=== PATIENT | female | born 1970 | race Caucasian/White ===

== ENCOUNTER 2018-03-14 12:20 | Outpatient (CLI) | payer OTHER | END 2018-03-14 12:21 | disposition home or self-care (01) | LOC: BICMAMMO 12:20 | PROVIDERS: ATTEND Family Medicine | DX: Z12.31 Encounter for screening mammogram for malignant neoplasm of breast (principal); R92.1 Mammographic calcification found on diagnostic imaging of breast; Z80.3 Family history of malignant neoplasm of breast | CPT/HCPCS: 77067 ==

== ENCOUNTER 2019-08-24 17:46 | Emergency (ER) | payer OTHER ==
[2019-08-24 18:04] LABS: #Eosinphils 0.2 thou/uL (0.0-0.7); #Lymphocytes 1.4 thou/uL (1.20-3.40); #Monocytes 0.4 thou/uL (0.11-0.59); %Basophils 1.2 % (0.0-1.0); %Eosinophils 4.2 % (0.0-10.0); %Lymphocytes 34.3 % (21.0-51.0); %Monocytes 9.4 % (0.0-10.0); %Neutrophils 50.9 % (42.0-75.0); Hemoglobin 13.5 g/dL (12.0-16.0); Mean Corpuscular HGB CONC 33.5 g/dL (32.0-36.0); Mean Corpuscular Hemoglobin 30.4 pg (27.0-31.0); Mean Corpuscular Volume 90.7 fL (78.0-98.0); Mean Platelet Volume 6.7 fL (7.4-10.4); Platelet Count 246 thou/uL (130-400); Red Blood Cell (RBC) Count 4.43 mill/uL (4.20-5.40); White Blood Cell (WBC) Count 3.9 thou/uL (4.8-10.8)
[2019-08-24 18:24] LABS: ALT (SGPT) 11 U/L (8-55); AST (SGOT) 12 U/L (5-34); Alkaline Phosphatase 94 U/L (40-110); Anion Gap 6 mmol/L (10-20); BUN (Urea Nitrogen) 10 mg/dL (7.0-18.7); Bilirubin, Total 0.3 mg/dL (0.2-1.2); Calc. Creatinine Clearance 0 mL/min (70-130); Calcium 9.3 mg/dL (7.8-10.44); Carbon Dioxide 32 mmol/L (22-29); Chloride 103 mmol/L (98-107); Estimated GFR-MDRD Greater than 90; Globulin 3.3 g/dL (2.4-3.5); Glucose 92 mg/dL (70-105); Potassium 4.5 mmol/L (3.5-5.1); Protein, Total 7.3 g/dL (6.0-8.3); Sodium 136 mmol/L (136-145)
--- NOTE | 2019-08-24 18:28 | ULT ---
ULTRASOUND DOPPLER DUPLEX VENOUS LEFT LOWER EXTREMITY: DATE: 08/24/2019 HISTORY: Left lower extremity pain TECHNIQUE: Grayscale, color-flow, and spectral analysis, of major veins of left lower extremity. FINDINGS: There is demonstration of blood flow with normal compressibility, of the left common femoral, profund a femoral, greater saphenous, femoral, popliteal, and posterior tibial, veins. IMPRESSION: Negative. No deep venous thrombosis of left lower extremity.
== END 2019-08-24 19:40 | disposition home or self-care (01) ==
LOC: ERS 17:46
DX: L03.116 Cellulitis of left lower limb (principal); F32.9 Major depressive disorder, single episode, unspecified
CPT/HCPCS: 36415; 80053; 85025

== ENCOUNTER 2019-09-24 10:13 | Outpatient (CLI) | payer OTHER ==
--- NOTE | 2019-09-24 12:57 | MRI ---
Exam: Brain MRI with and without contrast HISTORY: Multiple sclerosis diagnosis 1998. Follow-up exam. COMPARISON: 09/16/2015 FINDINGS: Gradient echo sequence: No hemorrhage Calvarium: Appropriate T1 marrow signal intensity Midline brain parenchyma: Unremarkable Cerebrum:No parenchymal mass, mass effect or midline shift. Brain volume, less than expected for adan ent's age. Cortical llamas-white matter differentiation is preserved. There are confluent T2 and FLAIR white matter hyperintensities, without associated restricted diffusion or enhancement. The conf iguration is somewhat atypical for multiple sclerosis. Ventricles: No evidence of hydrocephalus. Sinuses and mastoid air cells: Adequate aeration Diffusion: Central arterial flow is maintained. Absent restricted diffusion. Postcontrast images: No pathologic enhancement of the brain parenchyma. IMPRESSION: 1. Essentially stable white matter hyperintensities. The overall configuration is not typical for mul tiple atherosclerosis. Correlate clinically. 2. No evidence of enhancement or restricted diffusion suggest a focus of active demyelination in a pa tient with reported multiple sclerosis.
[2019-09-24] MEDS ORDERED: Magnevist 469MG/ML 20 ML VIAL ONE (14:27)
== END 2019-09-24 10:14 | disposition home or self-care (01) ==
LOC: BICMRI 10:13
PROVIDERS: ATTEND Nurse Practitioner Acute Care
DX: G35 Multiple sclerosis (principal); G93.89 Other specified disorders of brain
CPT/HCPCS: 70553; A9579

== ENCOUNTER 2020-11-26 10:22 | Outpatient (CLI) | payer OTHER ==
[2020-11-26] MEDS ORDERED: Magnevist 469MG/ML 20 ML VIAL ONE (12:37)
== END 2020-11-26 10:23 | disposition home or self-care (01) ==
LOC: BICMRI 10:22
PROVIDERS: ATTEND Nurse Practitioner Acute Care
DX: G40.209 Localization-related (focal) (partial) symptomatic epilepsy and epileptic syndromes with complex partial seizures, not intractable, without status epilepticus (principal); G35 Multiple sclerosis; R90.89 Other abnormal findings on diagnostic imaging of central nervous system
CPT/HCPCS: 70553; 82565; A9579

== ENCOUNTER 2024-05-01 12:24 | Outpatient (CLI) | payer OTHER | END 2024-05-01 12:25 | disposition home or self-care (01) | LOC: BICULT 12:24 | PROVIDERS: ATTEND Urology | DX: N39.41 Urge incontinence (principal); N30.00 Acute cystitis without hematuria; R35.0 Frequency of micturition | CPT/HCPCS: 76770 ==

== ENCOUNTER 2024-07-31 09:37 | Outpatient (CLI) | payer OTHER | END 2024-07-31 09:38 | disposition home or self-care (01) | LOC: BICMAMMO 09:37 | PROVIDERS: ATTEND Family Medicine | DX: Z12.31 Encounter for screening mammogram for malignant neoplasm of breast (principal); Z80.3 Family history of malignant neoplasm of breast | CPT/HCPCS: 77067 ==

== ENCOUNTER 2025-05-08 11:59 | Outpatient (CLI) | payer MEDICAID | END 2025-05-08 12:00 | disposition home or self-care (01) | LOC: MRI 11:59 | PROVIDERS: ATTEND Psychiatry & Neurology Neurology | DX: G35.D Multiple sclerosis, unspecified (principal); R56.9 Unspecified convulsions; M48.02 Spinal stenosis, cervical region; R90.82 White matter disease, unspecified | CPT/HCPCS: 70553; 72156; 76376 ==